=== PATIENT | female | born 1990 | race Caucasian/White ===

== ENCOUNTER 2020-07-14 01:00 | Emergency (ER) | payer MEDICAID ==
[~2020-07-14] VITALS: Ht 172.7 cm; Wt 63.5 kg
[2020-07-14 01:00] VITALS: BP 116/75
--- NOTE | 2020-07-14 01:00 | NUR ---
PT TAKEN TO LOBBY TO A/W BED
--- NOTE | 2020-07-14 02:05 | NUR ---
PT TAKEN TO BED 12
--- NOTE | 2020-07-14 02:10 | NUR ---
29 Y/O FEMALE PRESENTED TO ED C/O RT SIDED ABD PAIN X 3 DAYS. PT DESCRIBES PAIN ACHEY , /. PT DENIES SOB, FEVER, BODY ACHES , CHILLS. ABD APPEARS ROUND AND DISTENDED. PT DENIES PAIN UPON PALPATION. NORMOACTIVE BOWEL SOUNDS. RR EVEN AND UNLABORED. PT IN BED ,LOCKED AND IN LOWEST POSITION ,HOB ELEVATED , SIDE RAIL X1 . VSS. ERMD MADE AWARE OF PT STATUS. PMH: PER PT [facility]
--- NOTE | 2020-07-14 02:10 | NUR ---
PT PROVIDED W/ URINE CUP TO ENCOURAGE URINE SAMPLE.
--- NOTE | 2020-07-14 02:40 | NUR ---
LAB AT BEDSIDE.
--- NOTE | 2020-07-14 02:50 | NUR ---
PT PROVIDED SOCKS SO THAT SHE CAN AMBULATE TO RESTROOM TO PROVIDE URINE SAMPLE.
[2020-07-14 02:52] LABS: BASOPHILS # (AUTO) 0.4 K/uL (0.00-0.22); EOSINOPHILS # (AUTO) 0.2 K/uL (0-0.4); EOSINOPHILS % (AUTO) 1.7 % (0.0-4.0); HEMATOCRIT 31.9 % (36-48); HEMOGLOBIN 10.3 g/dL (12.0-16.0); LYMPHOCYTES % (AUTO) 10.8 % (20.5-51.1); MEAN CORPUSCULAR HEMOGLOBIN 25 pg (27-31); MEAN CORPUSCULAR HGB CONC 32 g/dL (33-37); MEAN CORPUSCULAR VOLUME 78.3 fL (80-94); MONOCYTES # (AUTO) 0.1 K/uL (0.8-1.0); NEUTROPHILS # (AUTO) 7.6 K/uL (1.8-7.7); NEUTROPHILS % (AUTO) 82.5 % (42.2-75.2); PLATELET COUNT (AUTO) 202 K/uL (140-450); RED BLOOD CELL COUNT(AUTO) 4.08 MIL/uL (4.20-5.40); RED CELL DISTRIBUTION WIDTH 14.3 % (11.6-13.7); WHITE BLOOD COUNT (AUTO) 9.3 K/uL (4.8-10.8)
--- NOTE | 2020-07-14 02:55 | NUR ---
PT AMBULATED TO RESTROOM W/ STEADY GAIT.
--- NOTE | 2020-07-14 03:00 | NUR ---
PT PROVIDED W/ GOWN AND INSTRUCTED THAT SHE WILL NEED TO BE IN A GOWN FOR THE ORDERED ULTRASOUND.
[2020-07-14 03:15] LABS: ALBUMIN 2.6 g/dL (3.4-5.0); ANION GAP 8.6 (8-16); CARBON DIOXIDE 24.9 mmol/L (21-32); CREATININE 0.6 mg/dL (0.6-1.3); POTASSIUM 3.5 mmol/L (3.5-5.1); TOTAL BILIRUBIN 0.3 mg/dL (0.0-1.0)
--- NOTE | 2020-07-14 03:17 | NUR ---
ERMD AT BEDSIDE FOR MEDICAL EVALUATION.
--- NOTE | 2020-07-14 03:18 | NUR ---
URINE SAMPLE PROVIDED AT THIS TIME. URINE DIP AND URINE HCG COMPLETED.
--- NOTE | 2020-07-14 03:57 | NUR ---
ULTRASOUND AT BEDSIDE.
--- NOTE | 2020-07-14 04:39 | NUR ---
PER LAB - WILL CALL ONCE RHOGAM INJECTION IS AVAILABLE FOR PRE CODER.
--- NOTE | 2020-07-14 05:50 | NUR ---
No adverse reaction noted from administration of Rhogram injection at this time.
--- NOTE | 2020-07-14 06:35 | NUR ---
Pt provided w/ bus pass and homeless packet at this time. Pt told she has signed her discharge paperwork and has been medically cleared by doctor to go home. Pt became aggressively and cursing at staff. Security called and is at bedside at this time to help escort pt out of ER.
[2020-07-14 06:39] VITALS: BP 111/85
--- NOTE | 2020-07-14 06:39 | NUR ---
Patient discharged with v/s stable. Written and verbal after care instructions given and explained. Patient verbalized understanding. Ambulatory with steady gait, escorted out of ER by security. All questions addressed prior to discharge. Advised to follow up with PMD.
== END 2020-07-14 06:39 | disposition home or self-care (01) ==
LOC: MED 01:00
DX: O46.93 Antepartum hemorrhage, unspecified, third trimester (principal); Z3A.29 29 weeks gestation of pregnancy
CPT/HCPCS: 36415; 76705; 76801; 80053; 81002; 81025; 83690; 84702; 85025; 86850; 86886; 86900; 86901; 99285; J2790; 96372